=== PATIENT | male | born 1955 | race Caucasian/White ===

== ENCOUNTER → 2018-04-29 | Outpatient (CLI) | payer MEDICARE ==
[2018-04-29 14:36] LABS: Microalb/Creat Ratio UR, Rand 30.41 mg/g (0.000-30.000); Microalbumin, Random Urine 37.1 mg/L (0.000-20.000)
== END ==
LOC: LAB SHORT 09:00 → LAB 09:00 → LAB FUT 04-15 15:15
PROVIDERS: Nurse Practitioner Family
DX: E11.9 Type 2 diabetes mellitus without complications (principal)
CPT/HCPCS: 82043; 82570

== ENCOUNTER → 2021-07-10 | Outpatient (CLI) | payer MEDICARE | LOC: LAB SHORT 07:16 | DX: R21 Rash and other nonspecific skin eruption (principal); D48.5 Neoplasm of uncertain behavior of skin | CPT/HCPCS: 88312 ==

== ENCOUNTER → 2024-11-16 | Outpatient (CLI) | payer MEDICARE | END | disposition home or self-care (01) | LOC: LAB SHORT 17:41 → LAB 17:41 | DX: L08.9 Local infection of the skin and subcutaneous tissue, unspecified (principal) | CPT/HCPCS: 87070; 87077; 87186; 87205 ==